=== PATIENT | female | born 1955 | race Caucasian/White ===

== ENCOUNTER → 2017-01-18 | Outpatient (REF) | payer BC ==
[~2017-01-18] MED LIST: ALEV220C2 PO; BIOT5TAB3 PO; CLAR1CHW PO; LEXA1TAB PO; METF1000 PO; MYLI40DR PO; NEUR600T PO; ROXI1TAB2 PO; TYLE325T5 PO; VITA100037 PO
[2017-01-18 17:32] LABS: ALBUMIN 3.5 GM/DL (3.2-5.2); ALBUMIN/GLOBULIN RATIO 1.06 (1.00-1.93); ALKALINE PHOSPHATASE 75 U/L (45-117); ALT/SGPT 28 U/L (12-78); ANION GAP 8 MEQ/L (8-16); AST/SGOT 24 U/L (15-37); BILIRUBIN,TOTAL 0.3 MG/DL (0.2-1.0); BLOOD UREA NITROGEN 25 MG/DL (7-18); CALCIUM LEVEL 8.9 MG/DL (8.8-10.2); CARBON DIOXIDE LEVEL 26 MEQ/L (21-32); CHLORIDE LEVEL 107 MEQ/L (98-107); CHOLESTEROL LEVEL 170 MG/DL (<200); CREATININE FOR GFR 0.87 MG/DL (0.55-1.02); GLOMERULAR FILTRATION RATE > 60.0 (>45); GLUCOSE, FASTING 113 MG/DL (80-110); SODIUM LEVEL 141 MEQ/L (136-145); TOTAL PROTEIN 6.8 GM/DL (6.4-8.2); TRIGLYCERIDES LEVEL 125 MG/DL (<150)
== END ==
LOC: M SFHCCAPE 07:42
PROVIDERS: ATTEND Nurse Practitioner
DX: E11.9 Type 2 diabetes mellitus without complications (principal)

== ENCOUNTER → 2017-02-27 | Outpatient (CLI) | payer BC ==
[~2017-02-27] MED LIST changes: +CLAR5TAB7 PO; +GLUC1CAP10 PO; +NATU400T PO; +OMEG12002 PO; +VITA10006 PO
[2017-02-27 12:00] LABS: INR 0.96
[2017-02-27 12:09] LABS: MEAN CORPUSCULAR HEMOGLOBIN 27.7 pg (27.0-33.0); MEAN CORPUSCULAR HGB CONC 32.7 g/dl (32.0-36.5); MEAN CORPUSCULAR VOLUME 84.7 fl (80.0-96.0); RED CELL DISTRIBUTION WIDTH 14.2 % (11.5-14.5); WHITE BLOOD COUNT 5.9 K/mm3 (4.0-10.0)
--- NOTE | 2017-02-27 12:12 | REP ---
Clinical: Diabetes. Comparison: None. Technique: PA and lateral. Findings: The mediastinum and cardiac silhouette are normal. The lung flores are clear and without acute consolidation, effusion, or pneumothorax. The skeletal structures are intact and normal. S/P left arthroplasty. Impression: 1. No acute cardiopulmonary process. Signed by Alphonso Vargas MD 02/27/2017 12:04 P
[2017-02-27 12:19] LABS: ALBUMIN 3.7 GM/DL (3.2-5.2); ALBUMIN/GLOBULIN RATIO 1.09 (1.00-1.93); ALKALINE PHOSPHATASE 85 U/L (45-117); ALT/SGPT 29 U/L (12-78); ANION GAP 8 MEQ/L (8-16); AST/SGOT 23 U/L (15-37); BILIRUBIN,TOTAL 0.5 MG/DL (0.2-1.0); BLOOD UREA NITROGEN 19 MG/DL (7-18); CALCIUM LEVEL 9.7 MG/DL (8.8-10.2); CARBON DIOXIDE LEVEL 28 MEQ/L (21-32); CHLORIDE LEVEL 103 MEQ/L (98-107); CREATININE FOR GFR 0.78 MG/DL (0.55-1.02); GLOMERULAR FILTRATION RATE > 60.0 (>45); GLUCOSE, FASTING 104 MG/DL (80-110); POTASSIUM SERUM 4.4 MEQ/L (3.5-5.1); SODIUM LEVEL 139 MEQ/L (136-145); TOTAL PROTEIN 7.1 GM/DL (6.4-8.2)
--- NOTE | 2017-03-01 14:19 | ECGEPIP ---
Stationary ECG Study [facility] Test Date: 2017-02-27 Pat Name: CHEYENNE SALAS Department: Room: - Gender: F Automation Engineering Technician: JUSTEN : 1955 Requested By: Abbe Arana Order Number: [id number] Reading MD: Serge Curry Measurements Intervals [place] Rate: 77 P: 11 OH: 157 QRS: -7 QRSD: 97 T: 20 QT: 361 QTc: 409 Interpretive Statements SINUS RHYTHM Normal Electronically Signed On 03-01-2017 14:18:50 EDT by Serge Curry
== END ==
LOC: M ADMPAT 10:13
PROVIDERS: ATTEND Orthopaedic Surgery
DX: Z01.818 Encounter for other preprocedural examination (principal); M17.12 Unilateral primary osteoarthritis, left knee

== ENCOUNTER 2017-03-13 08:10 | Inpatient (IN) | payer BC ==
[2017-02-27 10:46] VITALS: BP 136/80
--- NOTE | 2017-03-07 15:02 | HPE ---
DATE OF ADMISSION: 03/13/2017 HISTORY OF PRESENT ILLNESS: This is a pleasant female with continuing symptomatic left knee osteoarthritis. She has consented for left total knee arthroplasty per Dr. Sumit Arrington. Medical optimization was performed by Lashae Vaca today, I am awaiting optimization results. X-rays are consistent with advanced osteoarthritis. ALLERGIES: None known to drugs. CURRENT MEDICATIONS: List includes: - metformin HCl 1000 mg - Claritin-D 12 Hour 5-120 mg - vitamin E 400 units - vitamin C 1,000 mg - Biotin 1000 mcg - glucosamine chondroitin 1500 complex - omega 3 1200 mg MEDICAL PROBLEM LIST: Includes: 1. Symptomatic left knee osteoarthritis. 2. Diabetes mellitus. 3. Seasonal allergies. 4. Obesity. 5. Cancer history. SURGICAL HISTORY: Total hysterectomy, hernia repair, shoulder placement, cataract removal, LASIK. FAMILY HISTORY: Positive for hypertension, hypercholesteremia, heart disease, cancer, arthritis. SOCIAL HISTORY: She is a former smoker, quit. Rarely consumes ethanol. Denies illicit drugs. REVIEW OF SYSTEMS: Denies chest pain, dyspnea on exertion, fever, chills, malaise, upper respiratory or urinary tract symptoms. PHYSICAL EXAMINATION: Height 61 inches, weight 225. Temperature 98. She is a pleasant, obese female in no acute distress. She is alert and oriented times three. Mood and affect are appropriate. She is ambulating without overt antalgia assistance favoring. The lower extremities were inspected. Skin temperature, color, sensory and motor within normal limits. These are benign, noninfectious looking lower extremities. Left knee positive medial joint line tenderness with crepitance through flexion and extension, range of motion is 0 past 90. She is stable about the collateral ligaments, patellar, and quadriceps tendons without palpable defects. Patellar femoral joint (PFJ) congruent, static and dynamic. Left hip range of motion is not irritable or limited through internal or external range of motion. Normocephalic. Neck supple. Negative jugular venous distention (JVD) or bruits. Chest rises symmetrically, regular rate and rhythm. Lungs clear to auscultation. Bowels soft, nontender, sounds times four. LABORATORY DATA: Labs were unremarkable other than trace ketone, +1 leukocyte esterase and microscopic AUT WBC 5. BUN 19, sedimentation rate 33. Chest x-ray: No cardiopulmonary process, read by Dr. Vargas on 02/27/2017. EKG normal sinus rhythm as read by Dr. Serge Curry. IMPRESSION: 1. Symptomatic left knee osteoarthritis. 2. The patient consented for left total knee arthroplasty per Dr. Sumit Arrington. 3. Medical optimization performed today by Lashae Vcaa, we are awaiting optimization results. 4. On-call operating room (OR) 2 grams IV Kefzol in operating room (OR). 5. Sequential compression device (SCD) and thromboembolism deterrents (TEDs) in operating room (OR). MTDD
[~2017-03-13] VITALS: Ht 157.5 cm; Wt 104.1 kg
[2017-03-13] VITALS (8 sets, daily range): BP systolic 125–162; BP diastolic 60–81; O2SAT 98
[2017-03-13] MEDS ORDERED: LR 1,000 ML IV SCH ×2 (08:30→13:45)
[2017-03-13] MEDS ORDERED: ACETAMINOPHEN 500 MG TAB PO ONE (08:30)
[2017-03-13] MEDS ORDERED: LIDOCAINE 2% INJ 100 MG/5 ML SDV (FOR ANES.) As Ordered ONE (09:29)
[2017-03-13] MEDS ORDERED: PROPOFOL 500 MG/50 ML VIAL As Ordered ONE (09:29)
[2017-03-13] MEDS ORDERED: ONDANSETRON 4MG/2ML VIAL (J2405) As Ordered ONE (09:29)
[2017-03-13] MEDS ORDERED: MIDAZOLAM INJ 2 MG/2 ML VIAL (J2250) As Ordered ONE ×2 (09:29→09:30)
[2017-03-13] MEDS ORDERED: fentaNYL 100 MCG/2 ML INJECTION (J3010) As Ordered ONE ×3 (09:29→09:55)
[2017-03-13] MEDS ORDERED: BUPIVACAINE HCL 0.25% 30 ML VIAL As Ordered ONE (09:45)
[2017-03-13] MEDS ORDERED: BUPIVACAINE HCL 0.25% 10 ML VIAL As Ordered ONE (09:45)
[2017-03-13] MEDS ORDERED: EPINEPHrine INJ 1 MG/ML 1ML AMP As Ordered ONE (09:46)
[2017-03-13] MEDS: MIDAZOLAM INJ 2 MG/2 ML VIAL (J2250) IV PRN ×2 (09:46→09:50)
[2017-03-13] MEDS ORDERED: TRANEXAMIC ACID 100 MG/ML 10ML VIAL As Ordered ONE (09:46)
[2017-03-13] MEDS ORDERED: ceFAZolin 1GM INJ (J0690) As Ordered ONE (09:47)
[2017-03-13] MEDS ORDERED: fentaNYL 100 MCG/2 ML INJECTION (J3010) IV PRN ×2 (10:30→13:45)
[2017-03-13] MEDS ORDERED: BUPIVACAINE HCL 0.5% 10 ML VIAL As Ordered ONE (10:38)
[2017-03-13] MEDS ORDERED: ePHEDrine SULFATE 25 MG/5 ML(5MG/ML) SYRINGE As Ordered ONE (12:19)
[2017-03-13] MEDS ORDERED: PHENYLephrine HCL 500 MCG/5 ML (100MCG/ML) SYRINGE (J2370) As Ordered ONE (12:19)
[2017-03-13] MEDS ORDERED: PROPOFOL 200 MG/20 ML VIAL As Ordered ONE ×2 (12:21→13:00)
[2017-03-13] MEDS ORDERED: MORPHINE 1MG/ML IN 0.9% NACL 100ML IV BAG As Ordered ONE (13:07)
[2017-03-13] MEDS ORDERED: NALBUPHINE HCL 10 MG/ML AMP (J2300) IV PRN (13:45)
[2017-03-13] MEDS ORDERED: ONDANSETRON 4MG/2ML VIAL (J2405) IV PRN ×2 (13:45)
[2017-03-13] MEDS ORDERED: PERCOCET 5MG/325MG TAB PO PRN ×2 (13:45→17:45)
[2017-03-13] MEDS ORDERED: METOCLOPRAMIDE INJ 10MG/2ML VIAL (J2765) IV PRN (13:45)
[2017-03-13] MEDS ORDERED: NALOXONE INJ 0.4 MG/1 ML VIAL (J2310) IV PRN (13:45)
[2017-03-13] MEDS ORDERED: MORPHINE 1MG/ML IN 0.9% NACL 100ML IV BAG IV PRN (13:45)
[2017-03-13] MEDS ORDERED: PATIENT IS CURRENTLY ON AN ON-Q PAIN BUSTER PAIN RELIEF SYSTEM XX SCH (13:45)
[2017-03-13] MEDS ORDERED: EPIDURAL/PCA KEYS XX PRN (13:45)
[2017-03-13] MEDS ORDERED: diphenhydrAMINE INJ 50MG/ML VIAL (J1200) IV PRN (13:45)
[2017-03-13] MEDS ORDERED: FLEET ENEMA PR PRN (14:00)
[2017-03-13] MEDS ORDERED: ACETAMINOPHEN TAB 650MG DOSE (2X325MG) PO PRN (14:00)
--- NOTE | 2017-03-13 14:40 | RO ---
DATE OF PROCEDURE: 03/13/2017 PREPROCEDURE DIAGNOSIS: Left knee degenerative arthritis. POSTPROCEDURE DIAGNOSIS: Left knee degenerative arthritis. PROCEDURE: Left total knee arthroplasty using a cruciate sacrificing size #2.5 femoral component with a size #2 tibial tray and a 12.5 posterior stabilized polyethylene rotating platform insert with a 32 mm polyethylene button. All components were cemented. Prosthesis was made by [employer]. It was a PFC knee. SURGEON: Dr. Abbe Arrington UM RN: ANESTHESIA: Spinal with left femoral nerve block. COMPLICATIONS: None. ESTIMATED BLOOD LOSS: Less than 50 mL. SPECIMENS: Joint surface. DESCRIPTION OF PROCEDURE: Antibiotics were given intravenously preoperatively and then successful left femoral nerve block and then a spinal anesthetic was induced, tourniquet was placed on the left upper thigh, not inflated, then the left lower extremity was prepped and draped in the usual sterile fashion. The leg was elevated. After appropriate time out, the tourniquet was inflated 275 mmHg for 72 minutes. A longitudinal incision was made for a medial parapatellar approach to the knee. Bovie cautery was used to coagulate the crossing vessels. Medial parapatellar arthrotomy was performed. Subperiosteal dissection over the proximal medial and proximal lateral portion of the tibial plateau was performed and the patella was everted and the knee was flexed. The anterior cruciate ligament (ACL) was debrided. Drill was placed down the center of the femoral canal, followed by the intramedullary hernan set at 10 mm resection level at 5 degree valgus cut for a left knee. The block was pinned into position and then the distal femoral cut was performed. AP sizing jig measured closest to a size #3, but there was a bit of overhang, but it still measured at 3, so I went with that initially. 3-degree external rotation block was pinned, followed by the 4-in-1 block, and then the anterior and posterior chamfer cuts performed. We then exposed the proximal tibia. Used the extramedullary hernan to estimate being parallel to the mechanical access of the tibia. Then we referenced off the medial tibial condyle at 4 mm resection levels and then pinned the block in position. Extramedullary hernan was used for secondary check and it appeared that they were parallel to the mechanical axis. At this point, the proximal tibial osteotomy has been performed and then we placed a laminar director business integration laterally and performed completion medial meniscectomy and debrided large posterior medial osteophytes, then placed the lamina director business integration medially and performed a completion lateral meniscectomy and debridement of posterolateral osteophytes. The spacer blocks were then trialed and the 10 actually fit well. Thus, I removed the pins and she was relatively symmetric in flexion and extension, to varus and valgus stress testing as well. Thus, at this point, I then exposed the proximal tibia and sized for actually a size #2 tibial tray, which was then pinned into position, followed by the reamer and the broach and the trial polyethylene was applied and the femoral component was applied. There was quite a bit of overhang with a size #3. When we were done assessing the stability, it is clear that most of the posterior cruciate ligament (PCL), if not all the PCL was actually resected with the tibial cut, and there was not a lot of posterior capsule remaining, and thus I felt that the #3 femoral component seemed a bit large and we templated preoperatively between a 2 and 2.5, and also that there was a possibility of having some posterior instability, I elected to proceed with a posterior cruciate sacrificing femoral componenet. The trials were removed and the previous pin holes for the #3 femoral cutting block, 4-in-1 block were found, identified using the [id number] device, and then I switched out to the #2.5 4-in-1 block and then I touched up the posterior cut and the posterior chamfers, and there was no additional bone from the anterior chamfers or the anterior cut. Then I applied the box jig for the femoral notch cut, pinned it in position and performed the notch osteotomy and the #2.5 femoral component fit very nicely. Then I trialed with a 12.5 poly and this actually had excellent extension and good flexion, good stability to posterior stress, and also very stable to varus and valgus stress testing. Thus, I felt that this would be the appropriate sized components to use. I brought the knee into extension and performed patellar osteotomy, sized for a 32 button, lug holes were drilled, trial polyethylene was placed and the patellofemoral tracking was anatomic. Thus, at this point, I removed all the trial components. Mr. George Lyle mixed the cement on the back table as I copiously pulsatile lavage irrigated out the knee joint, preparing for bone cementing. I did bone graft the two small drills holes that we placed initially for the sacrificing femoral component. Once all the bony surfaces were thoroughly dried and irrigated, we cemented the tibial tray, removed excess cement, cemented the femoral component, removed excess cement, placed the polyethylene and brought it into extension then cemented the patellar button, removed excess cement and held it with a clamp until the cement had hardened. We copiously pulsatile lavage irrigated out the knee joint as we were waiting for the cement to harden with the knee in full extension. Mr. George Lyle was also critical to the success of the procedure by helping to close the wound, helping to prepare the patient, helping to manipulate the knee in flexion and extension and also help with appropriate soft tissue retraction so I could perform the operation smoothly and efficiently. Once the cement had hardened, the tranexamic acid had been applied, and I closed the apex of the wound with two #1 PDS sutures, medial parapatellar area was closed with a single #1 PDS suture, and a running double armed #1 Stratafix was used to close the capsule, then the tourniquet was released. We irrigated between layers, placed the PainBuster catheter. Then closed the deep subdermal tissues with interrupted #2-0 PDS suture. The skin was closed with cooper, covered by Adaptic dry sterile bulky dressing. She was then transferred to the recovery room in stable condition. There were no intraoperative complications.
[2017-03-13] MEDS: LR 1,000 ML IV SCH (16:30)
[2017-03-13] MEDS ORDERED: WARFARIN SOD 5 MG TAB PO SCH (17:00)
[2017-03-13] MEDS ORDERED: ONDANSETRON 4 MG TAB (S0181) PO PRN (17:45)
[2017-03-13] MEDS ORDERED: DEXTROSE 50% 50 ML SYRINGE IV PRN (18:30)
[2017-03-13] MEDS ORDERED: GLUCOSE 4 GM CHEW TABLET PO PRN (18:30)
[2017-03-13] MEDS ORDERED: GLUCAGON FOR INJ 1 MG VIAL (J1610) SC PRN (18:30)
[2017-03-13 19:01] LABS: MEAN CORPUSCULAR HEMOGLOBIN 27.5 pg (27.0-33.0); RED CELL DISTRIBUTION WIDTH 14.3 % (11.5-14.5)
[2017-03-13 19:24] LABS: ANION GAP 6 MEQ/L (8-16); BLOOD UREA NITROGEN 11 MG/DL (7-18); CALCIUM LEVEL 8.4 MG/DL (8.8-10.2); CARBON DIOXIDE LEVEL 28 MEQ/L (21-32); CHLORIDE LEVEL 108 MEQ/L (98-107); GLOMERULAR FILTRATION RATE > 60.0 (>45); GLUCOSE, FASTING 131 MG/DL (80-110); POTASSIUM SERUM 3.8 MEQ/L (3.5-5.1); SODIUM LEVEL 142 MEQ/L (136-145)
[2017-03-13] MEDS: HumaLOG INSULIN (NovoLOG) PER UNIT SC SCH (21:00)
[2017-03-14] MEDS: PERCOCET 5MG/325MG TAB PO PRN ×4 (01:10→22:26)
[2017-03-14] MEDS: LR 1,000 ML IV SCH (02:55)
[2017-03-14 03:30] VITALS: BP 154/87
[2017-03-14 06:00] VITALS: BP 137/79
[2017-03-14 07:16] LABS: EOS % 0.4 % (0.0-3.0); LARGE UNSTAINED CELL # 0.1 K/mm3 (0.0-0.4); LARGE UNSTAINED CELL % 0.7 % (0.0-4.0); LYMPH # 0.5 K/mm3 (1.5-4.5); LYMPH % 6.3 % (24.0-44.0); MEAN CORPUSCULAR HGB CONC 31.8 g/dl (32.0-36.5); MONO # 0.4 K/mm3 (0.0-0.8); MONO % 6.3 % (0.0-5.0); NEUTROPHILS # 6.1 K/mm3 (1.8-7.7); NEUTROPHILS % 86.4 % (36.0-66.0); PLATELET COUNT, AUTOMATED 173 k/mm3 (150-450); RED CELL DISTRIBUTION WIDTH 14.4 % (11.5-14.5)
[2017-03-14 07:20] LABS: INR 1.2
[2017-03-14 07:31] LABS: ALBUMIN 2.9 GM/DL (3.2-5.2); ALBUMIN/GLOBULIN RATIO 0.83 (1.00-1.93); ALKALINE PHOSPHATASE 73 U/L (45-117); ALT/SGPT 25 U/L (12-78); ANION GAP 4 MEQ/L (8-16); AST/SGOT 22 U/L (15-37); BILIRUBIN,TOTAL 0.5 MG/DL (0.2-1.0); BLOOD UREA NITROGEN 6 MG/DL (7-18); CALCIUM LEVEL 8.5 MG/DL (8.8-10.2); CARBON DIOXIDE LEVEL 30 MEQ/L (21-32); CHLORIDE LEVEL 104 MEQ/L (98-107); CREATININE FOR GFR 0.81 MG/DL (0.55-1.02); GLOMERULAR FILTRATION RATE > 60.0 (>45); GLUCOSE, FASTING 155 MG/DL (80-110); MAGNESIUM LEVEL 1.7 MG/DL (1.8-2.4); POTASSIUM SERUM 4.2 MEQ/L (3.5-5.1); SODIUM LEVEL 138 MEQ/L (136-145); TOTAL PROTEIN 6.4 GM/DL (6.4-8.2)
--- NOTE | 2017-03-14 08:10 | CR ---
DATE OF CONSULTATION: 03/13/2017 ORTHOPEDIC SURGEON: Dr. Arrington PRIMARY CARE PROVIDER: Tona Vaca PA-C REASON FOR CONSULT: Medical management. CODE STATUS: FULL CODE. HISTORY OF PRESENT ILLNESS: Mrs. Esqueda is a 62-year-old female with multiple past medical history, who had left total knee arthroplasty which was done by Dr. Arrington this afternoon. Patient has been having bilateral knee pain, left more than right due to osteoarthritis for a long time. this is an elective surgery was scheduled before to have this surgery; however, patient was postponing due to different reasons, including traveling. Medical optimization assessment was performed by her primary care provider (PCP). X-ray was consistent with advanced osteoarthritis. Patient's surgical procedure report was successful. ALLERGIES: No known drug allergies. HOME MEDICATIONS: - Aleve 220 mg by mouth every morning - vitamin E 400 units by mouth daily - vitamin C 1000 mg by mouth daily - Biotin 5 mg by mouth daily - Claritin D 5/120 mg one tablet by mouth daily - glucosamine chondroitin one capsule twice a day - metformin 1000 mg by mouth twice a day - Shelburn 3 one capsule daily PAST MEDICAL HISTORY: 1. Hypertension. 2. Depression. 3. Arthritis. 4. History of endometrial cancer. 5. Umbilical hernia due to total hysterectomy 2008. 6. Diabetes mellitus type 2. 7. Obstructive sleep apnea, 8. Hyperlipidemia. PAST SURGICAL HISTORY: 1. Left shoulder replacement 05/2013. 2. Total hysterectomy. 3. Endometrial cancer 2008. 4. Umbilical hernia repair 2009. 5. Incisional hernia repair 08/2015. 6. Right-side cataract 04/2016. FAMILY HISTORY: Patient's father at age 79 due to chronic obstructive pulmonary disease (COPD), lung cancer, prostate cancer. Mother still alive; however, has arthritis and hypertension. Patient has one brother who has a kidney condition; however, he is stable. Also, he has a history of skin cancer. Patient has no children. SOCIAL HISTORY: Patient lives alone. Patient denies having pets. Patient smoked from 1987 to 1994, about one-half pack a day. Patient occasionally drinks alcoholic beverages. Patient denies illicit drug use. Patient has traveled to [place] and [place]. REVIEW OF SYSTEMS: GENERAL: Patient denies fevers, chills, night sweats, weight loss, weight gain. HEENT: Patient denies acute vision or hearing changes. Patient denies problems with chewing food or sinusitis. NECK: Patient has no decreased range of motion of her neck. HEART: Patient denies palpitations, racing or skipping heartbeat or chest pain. LUNGS: Patient denies shortness of breath or coughing. ABDOMEN: Patient denies abdominal pain, nausea or vomiting, diarrhea, constipation, melena, hematochezia or hemoptysis. NEUROLOGIC: Patient denies history of transient ischemic attack (TIA), cerebrovascular accident (CVA), or seizure-type activity. EXTREMITIES: Patient expressed that she has left lower extremity pain, which is proportional to the surgery and patient expressed that her left lower extremity range of motion has decreased compared to the right secondary to surgical procedure. PHYSICAL EXAMINATION: VITAL SIGNS: Temperature 97.4, pulse 91, respiratory rate 15, blood pressure 136/61, pulse oximetry 97% on 2 liters nasal cannula. GENERAL APPEARANCE: Patient was lying in bed, in no acute distress. Patient was awake, alert and oriented to time, place and person. Patient was seen post left total knee arthroplasty. HEENT: Normocephalic, atraumatic. Pupils are equal and reactive to light. Oral mucosa is moist. LUNGS: Clear breath sounds bilaterally. Good air movement. HEART: Regular rate and rhythm. Normal S1, S2. ABDOMEN: Soft, obese, nontender to palpation. Positive bowel sounds in all quadrants. EXTREMITIES: Patient has mild lower extremity edema bilaterally. Left lower extremity has orthopedic surgical wound, dressing, which is intact. No bleeding or drainage was noted at the site of the surgery on the surgical dressing. Patient has normal sensation in both upper and lower extremities. Patient also has normal strength in both upper and lower extremities; however, patient has decreased strength on the left lower extremity compared to the right lower extremity due to surgery. Also, the range of motion of the left lower extremity is decreased compared to the right lower extremity due to surgical procedure. NEUROLOGIC: Cranial nerves II-XII intact. LABORATORY DATA: Laboratory data is pending at this time. IMAGING TECHNIQUE: No new imaging. ASSESSMENT AND PLAN: 1. Symptomatic left knee osteoarthritis. Patient is postoperative left total knee arthroplasty, which was done by Dr. Arrington. At this time, the patient is stable. Patient has started on warfarin and the PT/INR level is pending. Patient is also on Percocet at this time, which will be managed by orthopedics for pain management. Also, patient has been started on cephazolin. 2. Depression. At this time, patient is stable. She is on no medication. 3. Hypertension. Patient's blood pressure is stable at this time. Also, on IV lactate Ringer's, which was started by orthopedics group. 4. History of endometrial cancer. This is a chronic issue. At this time, patient is stable. 5. Umbilical hernia. Patient is stable. 6. Diabetes mellitus type 2. At home, patient was on metformin; however, I have stopped metformin. Patient is on sliding scale. Patient is also on consistent carbohydrate diet. 7. Deep venous thrombosis (DVT) prophylaxis. Patient is on warfarin. We will continue monitoring patient's PT, INR. My preceptor for this patient encounter was Dr. Cristiano Rubi. The preceptor was physically present in the building during the encounter and was fully available as needed. All aspects of the patient interview, examination, medical decision-making process, and medical care plan development were reviewed and approved by the preceptor. The preceptor is aware and concurs with the plan as stated in the body of this note and will attest to such by his/her co-signature. TRINH
[2017-03-14] MEDS: HumaLOG INSULIN (NovoLOG) PER UNIT SC SCH ×4 (08:19→20:41)
[2017-03-14] MEDS: MIRALAX *UNIT DOSE* 17GM PACKET PO SCH (08:19)
[2017-03-14] MEDS: MOM 30ML SUSPENSION UDC PO SCH (08:19)
[2017-03-14] MEDS: MORPHINE 15 MG SA TAB PO SCH ×2 (08:20→20:41)
[2017-03-14] MEDS: SENOKOT S TAB PO SCH ×2 (08:20→20:41)
--- NOTE | 2017-03-14 11:40 | REP ---
LEFT KNEE: Two views. HISTORY: Check placement. FINDINGS: Two views of the left knee demonstrate that the patient is status post left knee arthroplasty. Femoral, tibial, and patellar prosthetic components are well aligned. Anterior skin cooper and soft tissue swelling is seen. A pain control catheter system is visible laterally. Signed by Lowell Johnson MD 03/14/2017 01:38 P
--- NOTE | 2017-03-14 12:12 | IPNPDOC ---
Subjective Date Seen The patient was seen on 03/14/17. Subjective Chief Complaint/HPI The patient is a 62-year-old female admitted with a reason for visit of Arthritis Left Knee. Events since last encounter Was tired this morning, pain controlled. Tolerated some breakfast. Does not think that she needs to wear CPAP anymore because she has lost weight Constitutional: Denies: Chills, Fever Pulmonary: Denies: Dyspnea, Cough Cardiovascular: Denies: Chest Pain, Palpitations Gastrointestinal: Denies: Nausea, Vomiting, Abdominal Pain Objective Physical Examination General Exam: Positive: Alert, Cooperative, No Acute Distress Eye Exam: Negative: Sclera icteric ENT Exam: Positive: Mucous membr. moist/pink Chest Exam: Positive: Clear to auscultation, Negative: Rales, Rhonchi, Wheezing Heart Exam: Positive: Rate Normal, Regular Rhythm, Normal S1, Normal S2 Abdomen Exam: Positive: Normal bowel sounds, Soft, Negative: Tenderness Assessment /Plan Problems (1) Osteoarthritis Problem Text: Left total knee arthroplasty POD#[address] Jorge in person pain mgt, dvt proph, gi regimen, activity per ortho (2) Diabetes Status: Chronic Problem Specific Plan: Monitor Clinically Problem Text: sliding scale insulin consistent carb diet s/s insulin Well controlled for current setting (3) ROSS (obstructive sleep apnea) Problem Text: previous not currently on cpap as she has lost weight- needs a restudy as outpt as clinically (4) Hyperlipidemia Status: Chronic (5) HTN (hypertension) Status: Chronic Problem Text: List as a problem- no home meds, follow clinically (6) Depression Status: Chronic Plan/VTE VTE Prophylaxis Ordered?: Yes (by ortho) VS, I&O, 24H[facility] Vital Signs/I&O Vital Signs Date Time Temp Pulse Resp B/P (MAP) Pulse Ox O2 Delivery O2 Flow Rate FiO2 03/14/17 08:20 18 03/14/17 07:40 Room Air 03/14/17 06:00 98.2 80 137/79 (98) 99 2.0 I&O- Last 24 Hours up to 6 AM 03/14/17 06:00 Intake Total 2460 ml Output Total 2400 ml Balance 60 ml Laboratory Data 24H LABS Laboratory Tests 2 03/13/17 18:54: Anion Gap 6L, Glomerular Filtration Rate > 60.0, Blood Urea Nitrogen 11, Creatinine 0.80, Sodium Level 142, Potassium Level 3.8, Chloride Level 108H, Carbon Dioxide Level 28, Calcium Level 8.4L 03/13/17 19:46: Bedside Glucose (Misc Panel) 130H 03/14/17 06:45: Anion Gap 4L, Glomerular Filtration Rate > 60.0, Blood Urea Nitrogen 6L, Creatinine 0.81, Sodium Level 138, Potassium Level 4.2, Chloride Level 104, Carbon Dioxide Level 30, Calcium Level 8.5L, White Blood Count 7.0, Red Blood Count 4.03, Hemoglobin 10.9L, Hematocrit 34.3L, Mean Corpuscular Volume 85.0, Mean Corpuscular Hemoglobin 27.0, Mean Corpuscular Hemoglobin Concent 31.8L, Red Cell Distribution Width 14.4, Platelet Count 173, Neutrophils (%) (Auto) 86.4H, Lymphocytes (%) (Auto) 6.3L, Monocytes (%) (Auto) 6.3H, Eosinophils (%) ( Auto) 0.4, Basophils (%) (Auto) 0.0, Neutrophils # (Auto) 6.1, Lymphocytes # ( Auto) 0.5L, Monocytes # (Auto) 0.4, Eosinophils # (Auto) 0.0, Basophils # (Auto ) 0.0, Large Unclassified Cells % 0.7, Large Unclassified Cells # 0.1, Prothrombin Time 15.3H, Prothromb Time International Ratio 1.20, Aspartate Amino Transf (AST/SGOT) 22, Alanine Aminotransferase (ALT/SGPT) 25, Alkaline Phosphatase 73, Total Bilirubin 0.5, Total Protein 6.4, Albumin 2.9L, Magnesium Level 1.7L, Albumin/Globulin Ratio 0.83L CBC/BMP Laboratory Tests 03/13/17 18:54 Red Blood Count 3.80 L, Mean Corpuscular Volume 86.0, Mean Corpuscular Hemoglobin 27.5, Mean Corpuscular Hemoglobin Concent 32.0, Red Cell Distribution Width 14.3, Calcium Level 8.4 L 03/14/17 06:45 Red Blood Count 4.03, Mean Corpuscular Volume 85.0, Mean Corpuscular Hemoglobin 27.0, Mean Corpuscular Hemoglobin Concent 31.8 L, Red Cell Distribution Width 14.4, Calcium Level 8.5 L, Neutrophils (%) (Auto) 86.4 H, Lymphocytes (%) (Auto ) 6.3 L, Monocytes (%) (Auto) 6.3 H, Eosinophils (%) (Auto) 0.4, Basophils (%) ( Auto) 0.0, Neutrophils # (Auto) 6.1, Lymphocytes # (Auto) 0.5 L, Monocytes # ( Auto) 0.4, Eosinophils # (Auto) 0.0, Basophils # (Auto) 0.0, Aspartate Amino Transf (AST/SGOT) 22, Alanine Aminotransferase (ALT/SGPT) 25, Alkaline Phosphatase 73, Total Bilirubin 0.5, Total Protein 6.4, Albumin 2.9 L RITA EUBANKS MD Mar 14, 2017 12:12
[2017-03-14] MEDS ORDERED: WARFARIN SOD 5 MG TAB PO ONE (17:00)
[2017-03-14 22:00] VITALS: BP 146/88
[2017-03-15 06:00] VITALS: BP 160/78
[2017-03-15 07:38] LABS: BASO % 0.3 % (0.0-1.0); EOS # 0.1 K/mm3 (0.0-0.50); EOS % 1.4 % (0.0-3.0); LARGE UNSTAINED CELL # 0.1 K/mm3 (0.0-0.4); LARGE UNSTAINED CELL % 1.1 % (0.0-4.0); LYMPH # 0.6 K/mm3 (1.5-4.5); LYMPH % 6.5 % (24.0-44.0); MEAN CORPUSCULAR HEMOGLOBIN 26.8 pg (27.0-33.0); MEAN CORPUSCULAR HGB CONC 31.8 g/dl (32.0-36.5); MEAN CORPUSCULAR VOLUME 84.6 fl (80.0-96.0); MONO # 0.5 K/mm3 (0.0-0.8); MONO % 6.4 % (0.0-5.0); NEUTROPHILS # 6.2 K/mm3 (1.8-7.7); NEUTROPHILS % 84.3 % (36.0-66.0); PLATELET COUNT, AUTOMATED 172 k/mm3 (150-450); RED CELL DISTRIBUTION WIDTH 14.1 % (11.5-14.5); WHITE BLOOD COUNT 7.4 K/mm3 (4.0-10.0)
[2017-03-15 07:45] LABS: INR 1.6
[2017-03-15 07:53] LABS: ALBUMIN 2.8 GM/DL (3.2-5.2); ALBUMIN/GLOBULIN RATIO 0.76 (1.00-1.93); ALKALINE PHOSPHATASE 70 U/L (45-117); ALT/SGPT 20 U/L (12-78); ANION GAP 5 MEQ/L (8-16); AST/SGOT 17 U/L (15-37); BILIRUBIN,TOTAL 0.6 MG/DL (0.2-1.0); BLOOD UREA NITROGEN 7 MG/DL (7-18); CALCIUM LEVEL 8.7 MG/DL (8.8-10.2); CARBON DIOXIDE LEVEL 32 MEQ/L (21-32); CHLORIDE LEVEL 103 MEQ/L (98-107); CREATININE FOR GFR 0.82 MG/DL (0.55-1.02); GLOMERULAR FILTRATION RATE > 60.0 (>45); GLUCOSE, FASTING 132 MG/DL (80-110); MAGNESIUM LEVEL 2.2 MG/DL (1.8-2.4); POTASSIUM SERUM 3.9 MEQ/L (3.5-5.1); SODIUM LEVEL 140 MEQ/L (136-145); TOTAL PROTEIN 6.5 GM/DL (6.4-8.2)
[2017-03-15] MEDS: MORPHINE 15 MG SA TAB PO SCH ×2 (08:03→21:06)
[2017-03-15] MEDS: SENOKOT S TAB PO SCH ×2 (08:03→21:06)
[2017-03-15] MEDS: MOM 30ML SUSPENSION UDC PO SCH (08:03)
[2017-03-15] MEDS: MIRALAX *UNIT DOSE* 17GM PACKET PO SCH (08:03)
[2017-03-15] MEDS: HumaLOG INSULIN (NovoLOG) PER UNIT SC SCH ×4 (08:03→21:00)
[2017-03-15 08:14] VITALS: O2SAT 98
[2017-03-15] MEDS ORDERED: PERC5TAB6 PO (08:31)
[2017-03-15] MEDS ORDERED: MORP15TASA PO (08:31)
[2017-03-15] MEDS ORDERED: COUM2.5T11 PO (08:31)
--- NOTE | 2017-03-15 10:51 | IPNPDOC ---
Subjective Date Seen The patient was seen on 03/15/17. Subjective Chief Complaint/HPI The patient is a 62-year-old female admitted with a reason for visit of Arthritis Left Knee. Events since last encounter No BM as of yet, slept well last night, no chest pain, not short of breath, tolerating diet Constitutional: Denies: Chills, Fever Skin: Denies: Rash Pulmonary: Denies: Dyspnea, Cough Cardiovascular: Denies: Chest Pain, Palpitations Gastrointestinal: Denies: Nausea, Vomiting, Abdominal Pain Objective Physical Examination General Exam: Positive: Alert, Cooperative, No Acute Distress ENT Exam: Positive: Mucous membr. moist/pink Chest Exam: Positive: Clear to auscultation, Negative: Rales, Rhonchi, Wheezing Heart Exam: Positive: Rate Normal, Regular Rhythm, Normal S1, Normal S2 Abdomen Exam: Positive: Normal bowel sounds, Soft, Negative: Tenderness Assessment /Plan Problems (1) Osteoarthritis Problem Text: Left total knee arthroplasty POD#2 I discussed with Zakia Varner in person pain mgt, dvt proph, gi regimen, activity per ortho No BM as of the time of my evaluation 03/15/17 (2) Diabetes Status: Chronic Problem Specific Plan: Monitor Clinically Problem Text: sliding scale insulin consistent carb diet s/s insulin Well controlled for current setting as of 03/15/17 (3) ROSS (obstructive sleep apnea) Problem Text: previous not currently on cpap as she has lost weight- needs a restudy as outpt as clinically (4) Hyperlipidemia Status: Chronic (5) HTN (hypertension) Status: Chronic Problem Text: List as a problem- no home meds, follow clinically BP elevated, may benefit from treatment currently Jessee inhibitor would be a good outpt choice, but in post op setting will start a low dose norvasc (6) Depression Status: Chronic Plan/VTE VTE Prophylaxis Ordered?: Yes (by ortho) VS, I&O, 24H, Fishbone Vital Signs/I&O Vital Signs Date Time Temp Pulse Resp B/P (MAP) Pulse Ox O2 Delivery O2 Flow Rate FiO2 03/15/17 08:14 98 Nasal Cannula 2.0 03/15/17 08:03 22 03/15/17 06:00 98.4 93 160/78 (105) I&O- Last 24 Hours up to 6 AM 03/15/17 05:59 Intake Total 1540 ml Output Total 2475 ml Balance -935 ml Laboratory Data 24H LABS Laboratory Tests 2 03/14/17 12:12: Bedside Glucose (Misc Panel) 122H 03/14/17 16:51: Bedside Glucose (Misc Panel) 152H 03/14/17 20:01: Bedside Glucose (Misc Panel) 121H 03/15/17 06:46: White Blood Count 7.4, Red Blood Count 3.93L, Hemoglobin 10.6L, Hematocrit 33.2L , Mean Corpuscular Volume 84.6, Mean Corpuscular Hemoglobin 26.8L, Mean Corpuscular Hemoglobin Concent 31.8L, Red Cell Distribution Width 14.1, Platelet Count 172, Neutrophils (%) (Auto) 84.3H, Lymphocytes (%) (Auto) 6.5L, Monocytes (%) (Auto) 6.4H, Eosinophils (%) (Auto) 1.4, Basophils (%) (Auto) 0.3 , Neutrophils # (Auto) 6.2, Lymphocytes # (Auto) 0.6L, Monocytes # (Auto) 0.5, Eosinophils # (Auto) 0.1, Basophils # (Auto) 0.0, Large Unclassified Cells % 1.1 , Large Unclassified Cells # 0.1, Prothrombin Time 19.1H, Prothromb Time International Ratio 1.60, Anion Gap 5L, Glomerular Filtration Rate > 60.0, Blood Urea Nitrogen 7, Creatinine 0.82, Sodium Level 140, Potassium Level 3.9, Chloride Level 103, Carbon Dioxide Level 32, Calcium Level 8.7L, Aspartate Amino Transf (AST/SGOT) 17, Alanine Aminotransferase (ALT/SGPT) 20, Alkaline Phosphatase 70, Total Bilirubin 0.6, Total Protein 6.5, Albumin 2.8L, Magnesium Level 2.2, Albumin/Globulin Ratio 0.76L CBC/BMP Laboratory Tests 03/15/17 06:46 Red Blood Count 3.93 L, Mean Corpuscular Volume 84.6, Mean Corpuscular Hemoglobin 26.8 L, Mean Corpuscular Hemoglobin Concent 31.8 L, Red Cell Distribution Width 14.1, Neutrophils (%) (Auto) 84.3 H, Lymphocytes (%) (Auto) 6.5 L, Monocytes (%) (Auto) 6.4 H, Eosinophils (%) (Auto) 1.4, Basophils (%) ( Auto) 0.3, Neutrophils # (Auto) 6.2, Lymphocytes # (Auto) 0.6 L, Monocytes # ( Auto) 0.5, Eosinophils # (Auto) 0.1, Basophils # (Auto) 0.0, Calcium Level 8.7 L , Aspartate Amino Transf (AST/SGOT) 17, Alanine Aminotransferase (ALT/SGPT) 20, Alkaline Phosphatase 70, Total Bilirubin 0.6, Total Protein 6.5, Albumin 2.8 L RITA EUBANKS MD Mar 15, 2017 10:51
[2017-03-15] MEDS: amLODIPine 5 MG TAB PO SCH (12:15)
[2017-03-15] MEDS: PERCOCET 5MG/325MG TAB PO PRN ×2 (12:16→17:28)
[2017-03-15] MEDS ORDERED: WARFARIN SOD 5 MG TAB PO ONE (17:00)
[2017-03-15 22:00] VITALS: BP 157/78
[2017-03-16 06:00] VITALS: BP 150/75
[2017-03-16 07:30] LABS: BASO % 0.4 % (0.0-1.0); EOS # 0.2 K/mm3 (0.0-0.50); EOS % 2.6 % (0.0-3.0); LARGE UNSTAINED CELL # 0.1 K/mm3 (0.0-0.4); LARGE UNSTAINED CELL % 2.1 % (0.0-4.0); LYMPH # 0.7 K/mm3 (1.5-4.5); LYMPH % 9.2 % (24.0-44.0); MEAN CORPUSCULAR HEMOGLOBIN 27.6 pg (27.0-33.0); MEAN CORPUSCULAR HGB CONC 32.3 g/dl (32.0-36.5); MEAN CORPUSCULAR VOLUME 85.3 fl (80.0-96.0); MONO # 0.4 K/mm3 (0.0-0.8); MONO % 6.2 % (0.0-5.0); NEUTROPHILS # 4.8 K/mm3 (1.8-7.7); NEUTROPHILS % 79.5 % (36.0-66.0); PLATELET COUNT, AUTOMATED 194 k/mm3 (150-450); RED CELL DISTRIBUTION WIDTH 14.1 % (11.5-14.5); WHITE BLOOD COUNT 6.1 K/mm3 (4.0-10.0)
[2017-03-16 07:40] LABS: ALBUMIN 2.7 GM/DL (3.2-5.2); ALBUMIN/GLOBULIN RATIO 0.68 (1.00-1.93); ALKALINE PHOSPHATASE 67 U/L (45-117); ALT/SGPT 21 U/L (12-78); ANION GAP 7 MEQ/L (8-16); AST/SGOT 14 U/L (15-37); BILIRUBIN,TOTAL 0.6 MG/DL (0.2-1.0); BLOOD UREA NITROGEN 10 MG/DL (7-18); CALCIUM LEVEL 8.6 MG/DL (8.8-10.2); CARBON DIOXIDE LEVEL 30 MEQ/L (21-32); CHLORIDE LEVEL 102 MEQ/L (98-107); CREATININE FOR GFR 0.76 MG/DL (0.55-1.02); GLOMERULAR FILTRATION RATE > 60.0 (>45); GLUCOSE, FASTING 142 MG/DL (80-110); MAGNESIUM LEVEL 2.2 MG/DL (1.8-2.4); POTASSIUM SERUM 3.7 MEQ/L (3.5-5.1); SODIUM LEVEL 139 MEQ/L (136-145); TOTAL PROTEIN 6.7 GM/DL (6.4-8.2)
[2017-03-16] MEDS ORDERED: MAGNESIUM CITRATE 300 ML BTL PO ONE (08:00)
[2017-03-16] MEDS: HumaLOG INSULIN (NovoLOG) PER UNIT SC SCH ×2 (08:07→13:17)
[2017-03-16 08:08] VITALS: BP 150/75
[2017-03-16] MEDS: MOM 30ML SUSPENSION UDC PO SCH (08:08)
[2017-03-16] MEDS: MIRALAX *UNIT DOSE* 17GM PACKET PO SCH (08:08)
[2017-03-16] MEDS: amLODIPine 5 MG TAB PO SCH (08:08)
[2017-03-16] MEDS: SENOKOT S TAB PO SCH (08:08)
[2017-03-16] MEDS: MORPHINE 15 MG SA TAB PO SCH (08:08)
[2017-03-16 08:16] LABS: INR 1.77
[2017-03-16] MEDS: PERCOCET 5MG/325MG TAB PO PRN ×2 (09:19→13:17)
--- NOTE | 2017-03-16 13:25 | IPNPDOC ---
Subjective Date Seen The patient was seen on 03/16/17. Subjective Chief Complaint/HPI The patient is a 62-year-old female admitted with a reason for visit of Arthritis Left Knee. Events since last encounter Patient is feeling better, looking forward to going home, tolerating diet, no bm , passing flatus, considering recurrent sleep study- which we discussed the importance of Constitutional: Denies: Chills, Fever Pulmonary: Denies: Dyspnea, Cough Cardiovascular: Denies: Chest Pain, Palpitations Gastrointestinal: Denies: Nausea, Vomiting, Abdominal Pain Objective Physical Examination General Exam: Positive: Alert, Cooperative, No Acute Distress Eye Exam: Negative: Sclera icteric Chest Exam: Positive: Clear to auscultation, Negative: Rales, Rhonchi, Wheezing Heart Exam: Positive: Rate Normal, Regular Rhythm, Normal S1, Normal S2 Abdomen Exam: Positive: Normal bowel sounds, Soft, Negative: Tenderness Assessment /Plan Problems (1) Osteoarthritis Problem Text: Left total knee arthroplasty POD#3 I discussed with Zakia Varner in person today pain mgt, dvt proph, gi regimen, activity per ortho No BM as of the time of my evaluation 03/16/17 (2) Diabetes Status: Chronic Problem Specific Plan: Monitor Clinically Problem Text: sliding scale insulin consistent carb diet s/s insulin Well controlled for current setting as of 03/15/17 switch back to home meds for discharge (3) ROSS (obstructive sleep apnea) Problem Text: previous not currently on cpap as she has lost weight- needs a restudy as outpt as clinically (4) Hyperlipidemia Status: Chronic (5) HTN (hypertension) Status: Chronic Problem Text: List as a problem- no home meds, follow clinically BP elevated, may benefit from treatment currently Jessee inhibitor would be a good outpt choice, but in post op setting will start a low dose norvasc Needs further outpt monitoring- with improving pain management/recovery bp will normalize (6) Depression Status: Chronic Plan/VTE VTE Prophylaxis Ordered?: Yes (by ortho) VS, I&O, 24H, Fishbone Vital Signs/I&O Vital Signs Date Time Temp Pulse Resp B/P (MAP) Pulse Ox O2 Delivery O2 Flow Rate FiO2 03/16/17 13:17 20 03/16/17 11:00 95 Room Air 03/16/17 08:08 91 150/75 03/16/17 06:00 96.3 2.0 I&O- Last 24 Hours up to 6 AM 03/16/17 05:59 Intake Total 1880 ml Output Total 800 ml Balance 1080 ml Laboratory Data 24H LABS Laboratory Tests 2 03/15/17 16:38: Bedside Glucose (Misc Panel) 166H 03/15/17 20:31: Bedside Glucose (Misc Panel) 160H 03/16/17 07:15: White Blood Count 6.1, Red Blood Count 3.88L, Hemoglobin 10.7L, Hematocrit 33.1L , Mean Corpuscular Volume 85.3, Mean Corpuscular Hemoglobin 27.6, Mean Corpuscular Hemoglobin Concent 32.3, Red Cell Distribution Width 14.1, Platelet Count 194, Neutrophils (%) (Auto) 79.5H, Lymphocytes (%) (Auto) 9.2L, Monocytes (%) (Auto) 6.2H, Eosinophils (%) (Auto) 2.6, Basophils (%) (Auto) 0.4, Neutrophils # (Auto) 4.8, Lymphocytes # (Auto) 0.7L, Monocytes # (Auto) 0.4, Eosinophils # (Auto) 0.2, Basophils # (Auto) 0.0, Large Unclassified Cells % 2.1 , Large Unclassified Cells # 0.1, Prothrombin Time 20.7H, Prothromb Time International Ratio 1.77, Anion Gap 7L, Glomerular Filtration Rate > 60.0, Blood Urea Nitrogen 10, Creatinine 0.76, Sodium Level 139, Potassium Level 3.7, Chloride Level 102, Carbon Dioxide Level 30, Calcium Level 8.6L, Aspartate Amino Transf (AST/SGOT) 14L, Alanine Aminotransferase (ALT/SGPT) 21, Alkaline Phosphatase 67, Total Bilirubin 0.6, Total Protein 6.7, Albumin 2.7L, Magnesium Level 2.2, Albumin/Globulin Ratio 0.68L 03/16/17 12:03: Bedside Glucose (Misc Panel) 141H CBC/BMP Laboratory Tests 03/16/17 07:15 Red Blood Count 3.88 L, Mean Corpuscular Volume 85.3, Mean Corpuscular Hemoglobin 27.6, Mean Corpuscular Hemoglobin Concent 32.3, Red Cell Distribution Width 14.1, Neutrophils (%) (Auto) 79.5 H, Lymphocytes (%) (Auto) 9.2 L, Monocytes (%) (Auto) 6.2 H, Eosinophils (%) (Auto) 2.6, Basophils (%) ( Auto) 0.4, Neutrophils # (Auto) 4.8, Lymphocytes # (Auto) 0.7 L, Monocytes # ( Auto) 0.4, Eosinophils # (Auto) 0.2, Basophils # (Auto) 0.0, Calcium Level 8.6 L , Aspartate Amino Transf (AST/SGOT) 14 L, Alanine Aminotransferase (ALT/SGPT) 21 , Alkaline Phosphatase 67, Total Bilirubin 0.6, Total Protein 6.7, Albumin 2.7 L RITA EUBANKS MD Mar 16, 2017 13:25
--- NOTE | 2017-03-22 19:21 | DSES ---
DATE OF ADMISSION: 03/13/2017 DATE OF DISCHARGE: 03/16/2017 ATTENDING PHYSICIAN: Dr. Arrington. ADMITTING DIAGNOSIS: Left knee degenerative arthritis. OTHER DIAGNOSES: Diabetes, seasonal allergies, obesity, history of cancer. DISCHARGE DIAGNOSIS: Left knee degenerative arthritis status-post left total knee arthroplasty. HISTORY OF PRESENT ILLNESS: Patient is a 62-year-old female with continuing left knee pain and stiffness. She failed to improve with conservative measures so she consented for an elective left total knee arthroplasty with Dr. Arrington. OPERATION PERFORMED: Left total knee arthroplasty. HOSPITAL COURSE: The patient underwent a left total knee arthroplasty under spinal anesthesia which was uneventful. She was up with physical therapy per their protocol, weightbearing as tolerated on the left lower extremity. Her hospital course was without complication and she was stable on the day of discharge. She was discharged on oral pain medications and will resume her preoperative medications and diet. She will take her Coumadin and use her thromboembolic deterrent stockings for 30 days postoperatively to prevent deep venous thrombosis. She will followup in our office in approximately 12-14 days for a wound check and staple removal. She is encouraged to contact our office sooner if there is any increased pain, drainage, bleeding, redness, numbness or tingling in her leg, fever greater than 101 degrees or any other concerns. My preceptor for this patient encounter was Dr. Arrington. He was physically present in the building during the encounter and was fully available. As needed, all aspects of the patient interview, examination, medical decision making process, and medical care plan development were reviewed and approved by the preceptor. The preceptor is aware and concurs with the plan as stated in the body of this note and will attest to such by his/her cosignature. TRINH
== END 2017-03-16 16:30 | disposition home health service (06) | DRG 302 ==
LOC: M OR 08:10 → M MS5PR 14:30
PROVIDERS: ADMIT Orthopaedic Surgery; ATTEND Orthopaedic Surgery
PROC: 0SRD0J9 Replacement of Left Knee Joint with Synthetic Substitute, Cemented, Open Approach (ICD-10-PCS; principal; 2017-03-13 10:30)
DX: M17.12 Unilateral primary osteoarthritis, left knee (principal); Z68.41 Body mass index [BMI] 40.0-44.9, adult; I10 Essential (primary) hypertension; E66.9 Obesity, unspecified; Z79.899 Other long term (current) drug therapy; E11.9 Type 2 diabetes mellitus without complications; G47.33 Obstructive sleep apnea (adult) (pediatric); E78.5 Hyperlipidemia, unspecified; Z85.89 Personal history of malignant neoplasm of other organs and systems; K42.9 Umbilical hernia without obstruction or gangrene

== ENCOUNTER → 2017-03-29 | Outpatient (REF) | payer BC ==
[~2017-03-29] MED LIST changes: +COUM2.5T11 PO; +MORP15TASA PO; +PERC5TAB6 PO
[2017-03-29 17:06] LABS: INR 1.94
== END ==
LOC: M LABDRAWC 16:49
PROVIDERS: ATTEND Orthopaedic Surgery
DX: Z51.81 Encounter for therapeutic drug level monitoring (principal); Z79.01 Long term (current) use of anticoagulants

== ENCOUNTER → 2017-04-02 | Outpatient (REF) | payer BC ==
[2017-04-02 12:10] LABS: INR 1.95
== END ==
LOC: M LABDRAWC 11:34
PROVIDERS: ATTEND Orthopaedic Surgery
DX: Z51.81 Encounter for therapeutic drug level monitoring (principal); Z79.01 Long term (current) use of anticoagulants

== ENCOUNTER → 2017-04-05 | Outpatient (REF) | payer BC ==
[~2017-04-05] MED LIST changes: -COUM2.5T11 PO; +COUM2.5T17 PO; -METF1000 PO; +METF10004 PO; +PERC5TAB12 PO; -PERC5TAB6 PO; -VITA100037 PO; +VITA100067 PO
[2017-04-05 12:05] LABS: INR 1.66
== END ==
LOC: M LABDRAWC 11:35
PROVIDERS: ATTEND Orthopaedic Surgery
DX: Z51.81 Encounter for therapeutic drug level monitoring (principal); Z79.01 Long term (current) use of anticoagulants

== ENCOUNTER → 2017-04-09 | Outpatient (REF) | payer BC ==
[2017-04-09 11:49] LABS: INR 1.63
== END ==
LOC: M LABDRAWC 11:15
PROVIDERS: ATTEND Orthopaedic Surgery
DX: Z51.81 Encounter for therapeutic drug level monitoring (principal); Z79.01 Long term (current) use of anticoagulants

== ENCOUNTER → 2017-07-11 | Outpatient (CLI) | payer BC ==
--- NOTE | 2017-07-13 09:45 | DEXA ---
AP SPINE L1 - L4 1.220 0.2 1.7 LT FEMUR TOTAL 0.989 -0.2 0.9 RT FEMUR TOTAL 0.996 -0.1 1.0 TOTAL BODY TOTAL OTHER % COMMENTS: Normal bone densitometry of the spine. Normal bone densitometry of the left hip. There is low bone density of the right hip. FOLLOW-UP: Recommendation for the next bone density exam: 2 years. TRINH
--- NOTE | 2017-07-18 09:04 | REPMRS ---
Patient History The patient states she had a clinical breast exam in 05/24 Patient is postmenopausal, has history of endometrial cancer at age 54, had previous chemotherapy at age 54, and is nulliparous. Family history of prostate cancer in father at age 50 or over. Digital Woman Screen Mammo: July 11, 2017 - Exam #: [id number] Bilateral CC and MLO view(s) were taken. Technologist: Savannah Chapa, Technologist Prior study comparison: 2012, diagnostic bilateral mammo, performed at [facility]. 2011, digital bilateral screening mammo, performed at [facility]. January 03, 2011, digital bilateral screening mammo, performed at [facility]. FINDINGS: The breast tissue is almost entirely fat. There are benign-appearing secretory microcalcifications in the left breast. There has been no change in the appearance of the mammogram from the prior studies. There is no interval development of dominant mass, architectural distortion, or clustered microcalcification typical of malignancy. ASSESSMENT: BI-RADS/ACR category 1 mammogram. Negative. Recommendation Routine screening mammogram of both breasts in 1 year (for women over age 40). This mammogram was interpreted with the aid of an FDA-approved computer-aided dectection system. Electronically Signed By: Kenan Johnson MD 07/18/17 0931
== END ==
LOC: M WHC 14:14
PROVIDERS: ATTEND Physician Assistant
DX: Z12.31 Encounter for screening mammogram for malignant neoplasm of breast (principal); Z78.0 Asymptomatic menopausal state
CPT/HCPCS: 77080; G0202

== ENCOUNTER → 2017-07-11 | Outpatient (REF) | payer BC | LOC: M SFHCWAGY 14:43 | PROVIDERS: ATTEND Nurse Practitioner Family | DX: Z12.72 Encounter for screening for malignant neoplasm of vagina (principal); Z12.4 Encounter for screening for malignant neoplasm of cervix; Z12.31 Encounter for screening mammogram for malignant neoplasm of breast ==

== ENCOUNTER → 2017-07-25 | Outpatient (REF) | payer BC ==
[2017-07-25 18:40] LABS: BASO % 0.8 % (0.0-1.0); EOS # 0.2 10^3/uL (0.0-0.50); EOS % 3.3 % (0.0-3.0); IMMATURE GRANULOCYTE % 0.4 % (0-0); LYMPH % 18.5 % (24.0-44.0); MEAN CORPUSCULAR HEMOGLOBIN 26.7 pg (27.0-33.0); MEAN CORPUSCULAR HGB CONC 32.1 g/dl (32.0-36.5); MEAN CORPUSCULAR VOLUME 83.3 fl (80.0-96.0); MONO # 0.4 10^3/uL (0.0-0.8); MONO % 7.3 % (0.0-5.0); NEUTROPHILS # 3.6 10^3/uL (1.8-7.7); NEUTROPHILS % 69.7 % (36.0-66.0); PLATELET COUNT, AUTOMATED 233 10^3/uL (150-450); RED CELL DISTRIBUTION WIDTH 15.2 % (11.5-14.5); WHITE BLOOD COUNT 5.2 10^3/uL (4.0-10.0)
[2017-07-25 19:14] LABS: ALBUMIN 3.8 GM/DL (3.2-5.2); ALBUMIN/GLOBULIN RATIO 1.09 (1.00-1.93); ALKALINE PHOSPHATASE 100 U/L (45-117); ALT/SGPT 22 U/L (12-78); ANION GAP 8 MEQ/L (8-16); AST/SGOT 18 U/L (15-37); BILIRUBIN,TOTAL 0.7 MG/DL (0.2-1.0); BLOOD UREA NITROGEN 20 MG/DL (7-18); CALCIUM LEVEL 9.4 MG/DL (8.8-10.2); CARBON DIOXIDE LEVEL 29 MEQ/L (21-32); CHLORIDE LEVEL 102 MEQ/L (98-107); CHOLESTEROL LEVEL 203 MG/DL (<200); CREATININE FOR GFR 0.81 MG/DL (0.55-1.02); FREE T4 1.16 NG/DL (0.76-1.46); GLOMERULAR FILTRATION RATE > 60.0 (>45); GLUCOSE, FASTING 104 MG/DL (80-110); POTASSIUM SERUM 4.2 MEQ/L (3.5-5.1); SODIUM LEVEL 139 MEQ/L (136-145); TOTAL PROTEIN 7.3 GM/DL (6.4-8.2); TRIGLYCERIDES LEVEL 144 MG/DL (<150)
== END ==
LOC: M SFHCCAPE 07:44
PROVIDERS: ATTEND Physician Assistant
DX: E78.5 Hyperlipidemia, unspecified (principal); E11.9 Type 2 diabetes mellitus without complications; I10 Essential (primary) hypertension

== ENCOUNTER → 2018-01-21 | Outpatient (REF) | payer BC ==
[2018-01-21 17:57] LABS: BASO % 0.4 % (0.0-1.0); EOS # 0.1 10^3/uL (0.0-0.50); EOS % 2.5 % (0.0-3.0); HEMATOCRIT 37.5 % (36.0-47.0); HEMOGLOBIN 11.5 g/dl (12.0-15.5); IMMATURE GRANULOCYTE % 0.2 % (0-3.0); LYMPH # 0.9 10^3/uL (1.5-4.5); LYMPH % 18.7 % (24.0-44.0); MEAN CORPUSCULAR HEMOGLOBIN 24.7 pg (27.0-33.0); MEAN CORPUSCULAR HGB CONC 30.7 g/dl (32.0-36.5); MEAN CORPUSCULAR VOLUME 80.6 fl (80.0-96.0); MONO # 0.4 10^3/uL (0.0-0.8); MONO % 8.6 % (0.0-5.0); NEUTROPHILS # 3.3 10^3/uL (1.8-7.7); NEUTROPHILS % 69.6 % (36.0-66.0); PLATELET COUNT, AUTOMATED 242 10^3/uL (150-450); RED BLOOD COUNT 4.65 10^6/uL (4.00-5.40); RED CELL DISTRIBUTION WIDTH 15.3 % (11.5-14.5); WHITE BLOOD COUNT 4.8 10^3/uL (4.0-10.0)
[2018-01-21 18:31] LABS: ALBUMIN 3.8 GM/DL (3.2-5.2); ALBUMIN/GLOBULIN RATIO 1.09 (1.00-1.93); ALKALINE PHOSPHATASE 93 U/L (45-117); ALT/SGPT 25 U/L (12-78); ANION GAP 7 MEQ/L (8-16); AST/SGOT 20 U/L (7-37); BILIRUBIN,TOTAL 0.3 MG/DL (0.2-1.0); BLOOD UREA NITROGEN 21 MG/DL (7-18); CALCIUM LEVEL 9.1 MG/DL (8.8-10.2); CARBON DIOXIDE LEVEL 26 MEQ/L (21-32); CHLORIDE LEVEL 109 MEQ/L (98-107); CHOLESTEROL LEVEL 190 MG/DL (<200); CHOLESTEROL RISK RATIO 3.454 (<5); CREATININE FOR GFR 0.77 MG/DL (0.55-1.30); FREE T4 1.13 NG/DL (0.76-1.46); GLOMERULAR FILTRATION RATE > 60.0 (>45); GLUCOSE, FASTING 100 MG/DL (70-100); HDL CHOLESTEROL 55 MG/DL (>40); LDL CHOLESTEROL 113.8 MG/DL (<100); NON-HDL-C 135 MG/DL; POTASSIUM SERUM 4.5 MEQ/L (3.5-5.1); SODIUM LEVEL 142 MEQ/L (136-145); TOTAL PROTEIN 7.3 GM/DL (6.4-8.2); TRIGLYCERIDES LEVEL 106 MG/DL (<150)
[2018-01-21 18:53] LABS: MALB URINE SIEMENS 12.4 MG/L; MAU/CREAT RATIO 11.5 MCG/MG (0.0-30.0)
[2018-01-21 19:17] LABS: ESTIMATED AVERAGE GLUCOSE 137 MG/DL (60-110); HEMOGLOBIN A1c 6.4 %
== END ==
LOC: M SFHCCAPE 10:46
DX: E11.9 Type 2 diabetes mellitus without complications (principal); E78.5 Hyperlipidemia, unspecified
CPT/HCPCS: 84443

== ENCOUNTER → 2018-07-30 | Outpatient (REF) | payer BC ==
[2018-07-30 17:42] LABS: BASO % 0.5 % (0.0-1.0); EOS # 0.2 10^3/uL (0.0-0.50); EOS % 2.8 % (0.0-3.0); HEMATOCRIT 33.8 % (36.0-47.0); HEMOGLOBIN 10.2 g/dl (12.0-15.5); IMMATURE GRANULOCYTE % 0.5 % (0-3.0); LYMPH % 15.3 % (24.0-44.0); MEAN CORPUSCULAR HEMOGLOBIN 24.5 pg (27.0-33.0); MEAN CORPUSCULAR HGB CONC 30.2 g/dl (32.0-36.5); MEAN CORPUSCULAR VOLUME 81.3 fl (80.0-96.0); MONO # 0.5 10^3/uL (0.0-0.8); NEUTROPHILS # 4.8 10^3/uL (1.8-7.7); NEUTROPHILS % 73.9 % (36.0-66.0); PLATELET COUNT, AUTOMATED 251 10^3/uL (150-450); RED BLOOD COUNT 4.16 10^6/uL (4.00-5.40); RED CELL DISTRIBUTION WIDTH 16.2 % (11.5-14.5); WHITE BLOOD COUNT 6.5 10^3/uL (4.0-10.0)
[2018-07-30 21:54] LABS: ALBUMIN 3.5 GM/DL (3.2-5.2); ALBUMIN/GLOBULIN RATIO 1.25 (1.00-1.93); ALKALINE PHOSPHATASE 93 U/L (45-117); ALT/SGPT 24 U/L (12-78); ANION GAP 7 MEQ/L (8-16); AST/SGOT 16 U/L (7-37); BILIRUBIN,TOTAL 0.3 MG/DL (0.2-1.0); BLOOD UREA NITROGEN 17 MG/DL (7-18); CALCIUM LEVEL 8.9 MG/DL (8.8-10.2); CARBON DIOXIDE LEVEL 28 MEQ/L (21-32); CHLORIDE LEVEL 104 MEQ/L (98-107); CHOLESTEROL LEVEL 195 MG/DL (<200); CHOLESTEROL RISK RATIO 4.062 (<5); CREATININE FOR GFR 0.77 MG/DL (0.55-1.30); GLOMERULAR FILTRATION RATE > 60.0 (>45); GLUCOSE, FASTING 144 MG/DL (70-100); HDL CHOLESTEROL 48 MG/DL (>40); LDL CHOLESTEROL 118 MG/DL (<100); NON-HDL-C 147 MG/DL; POTASSIUM SERUM 4.4 MEQ/L (3.5-5.1); SODIUM LEVEL 139 MEQ/L (136-145); TOTAL PROTEIN 6.3 GM/DL (6.4-8.2); TRIGLYCERIDES LEVEL 145 MG/DL (<150)
[2018-07-30 22:42] LABS: ESTIMATED AVERAGE GLUCOSE 131 MG/DL (60-110); HEMOGLOBIN A1c 6.2 %
[2018-07-31 10:19] LABS: HEPATITIS C VIRUS ABY INDEX < 0.0 INDEX (<0.8)
== END ==
LOC: M SFHCCAPE 07:01
DX: E11.9 Type 2 diabetes mellitus without complications (principal); Z11.59 Encounter for screening for other viral diseases; E78.5 Hyperlipidemia, unspecified
CPT/HCPCS: 80053

== ENCOUNTER → 2018-08-07 | Outpatient (REF) | payer BC ==
[2018-08-07 17:23] LABS: RETIC HEMOGLOBIN EQUIVALENT 24.9 pg (24-36); RETICULOCYTE # 69.1 10^9/L (17-77); RETICULOCYTE % 1.6 % (0.5-1.5)
[2018-08-07 17:25] LABS: LDH LACTATE DEHYDROGENASE 201 U/L (84-246)
[2018-08-07 17:25] LABS: FERRITIN 10 NG/ML (8-252); IRON (FE) 29 UG/DL (50-170); PERCENT SATURATION 6.6 % (13.2-45.0); TOTAL IRON BINDING CAPACITY 439 UG/DL (250-450)
[2018-08-07 17:29] LABS: FOLATE 15.2 NG/ML
[2018-08-09 08:14] LABS: HAPTOGLOBIN 165 mg/dL (34-200)
== END ==
LOC: M SFHCCAPE 09:27
DX: D64.9 Anemia, unspecified (principal)
CPT/HCPCS: 82746

== ENCOUNTER → 2018-12-27 | Outpatient (REF) | payer BC ==
[~2018-12-27] MED LIST changes: +ASPI81TA85 PO; +FERR325T3 PO; +MOVE1TAB PO; +PANT40TA3 PO; +SODI5OPD OD; +SUPECAP24 PO; +VITA2000 PO
[2018-12-27 18:39] LABS: FERRITIN 24 NG/ML (8-252)
[2018-12-27 18:40] LABS: BASO % 0.6 % (0.0-1.0); EOS # 0.1 10^3/uL (0.0-0.50); EOS % 2.8 % (0.0-3.0); HEMATOCRIT 39.1 % (36.0-47.0); HEMOGLOBIN 12.1 g/dl (12.0-15.5); LYMPH % 20.3 % (24.0-44.0); MEAN CORPUSCULAR HEMOGLOBIN 25.6 pg (27.0-33.0); MEAN CORPUSCULAR HGB CONC 30.9 g/dl (32.0-36.5); MEAN CORPUSCULAR VOLUME 82.8 fl (80.0-96.0); MONO # 0.4 10^3/uL (0.0-0.8); MONO % 7.6 % (0.0-5.0); NEUTROPHILS # 3.4 10^3/uL (1.8-7.7); NEUTROPHILS % 68.3 % (36.0-66.0); PLATELET COUNT, AUTOMATED 239 10^3/uL (150-450); RED BLOOD COUNT 4.72 10^6/uL (4.00-5.40)
[2018-12-27 18:48] LABS: VITAMIN B12 LEVEL 277 PG/ML (247-911)
== END ==
LOC: M LABDRAWC 16:28
PROVIDERS: ATTEND Internal Medicine Hematology & Oncology
DX: D64.9 Anemia, unspecified (principal)

== ENCOUNTER → 2019-07-02 | Outpatient (REF) | payer MEDICARE, BC ==
[~2019-07-02] MED LIST changes: +B-1225002 SL; +BIOT10009 PO; -CLAR1CHW PO; +CLAR1CHW2 PO; +OCUV1CAP4 PO; +VITA100024 PO
[2019-07-02 17:32] LABS: ALBUMIN 3.8 GM/DL (3.2-5.2); ALT/SGPT 26 U/L (12-78); BILIRUBIN,TOTAL 0.5 MG/DL (0.2-1.0); BLOOD UREA NITROGEN 26 MG/DL (7-18); CALCIUM LEVEL 10.3 MG/DL (8.8-10.2); CARBON DIOXIDE LEVEL 26 MEQ/L (21-32); CHLORIDE LEVEL 104 MEQ/L (98-107); CHOLESTEROL LEVEL 182 MG/DL (<200); CHOLESTEROL RISK RATIO 3.568 (<5); CREATININE FOR GFR 0.85 MG/DL (0.55-1.30); GLOMERULAR FILTRATION RATE > 60.0 (>45); GLUCOSE, FASTING 95 MG/DL (70-100); HDL CHOLESTEROL 51 MG/DL (>40); LDL CHOLESTEROL 105 MG/DL (<100); NON-HDL-C 131 MG/DL; POTASSIUM SERUM 4.3 MEQ/L (3.5-5.1); SODIUM LEVEL 140 MEQ/L (136-145); TRIGLYCERIDES LEVEL 130 MG/DL (<150)
[2019-07-02 17:48] LABS: BASO % 0.5 % (0.0-1.0); EOS # 0.1 10^3/uL (0.0-0.5); EOS % 1.8 % (0.0-3.0); HEMATOCRIT 45.1 % (36.0-47.0); HEMOGLOBIN 14.6 g/dl (12.0-15.5); LYMPH % 18.6 % (24.0-44.0); MEAN CORPUSCULAR HEMOGLOBIN 28.9 pg (27.0-33.0); MEAN CORPUSCULAR HGB CONC 32.4 g/dl (32.0-36.5); MEAN CORPUSCULAR VOLUME 89.3 fl (80.0-96.0); MONO # 0.5 10^3/uL (0.0-0.8); MONO % 8.6 % (0.0-5.0); NEUTROPHILS # 3.8 10^3/uL (1.5-8.5); NEUTROPHILS % 70.3 % (36.0-66.0); PLATELET COUNT, AUTOMATED 207 10^3/uL (150-450); RED BLOOD COUNT 5.05 10^6/uL (4.00-5.40); WHITE BLOOD COUNT 5.5 10^3/uL (4.0-10.0)
[2019-07-02 18:02] LABS: HEMOGLOBIN A1c 5.6 %
== END ==
LOC: M SFHCCAPE 07:15
PROVIDERS: ATTEND Physician Assistant
DX: E11.9 Type 2 diabetes mellitus without complications (principal)

== ENCOUNTER → 2019-10-10 | Outpatient (REF) | payer MEDICARE, BC | LOC: M LAB REF 18:34 | PROVIDERS: ATTEND Dermatology | DX: L82.1 Other seborrheic keratosis (principal) | CPT/HCPCS: 11102; 88305; G0463 ==

== ENCOUNTER 2020-03-08 01:06 | Emergency (ER) | payer MEDICARE ==
[~2020-03-08] VITALS: Ht 157.5 cm; Wt 102.3 kg
[2020-03-08] MEDS ORDERED: KETOROLAC 60MG 2ML VIAL IM ONE (01:45)
[2020-03-08 03:00] VITALS: BP 137/73
--- NOTE | 2020-03-08 09:38 | REP ---
REASON FOR EXAM: Back pain. CHEST PORTABLE: FINDINGS: The technique utilized in obtaining the radiograph has magnified the cardiac silhouette and accentuated the interstitial markings. The superior mediastinal structures are midline. The cardiac silhouette is unremarkable in size, shape, and position. The diaphragmatic surfaces of the lungs are regular, and the costophrenic angles are clear. The pulmonary flores are clear. The imaged osseous structures are intact. IMPRESSION: There is no acute cardiopulmonary disease. A left shoulder prosthesis is noted. Electronically Signed by Josias Finnegan DO 03/08/2020 10:10 A
--- NOTE | 2020-03-08 20:26 | ECGEPIP ---
[facility] - ED Test Date: 2020-03-08 Pat Name: CHEYENNE SALAS Department: Room: - Gender: Female Social Service Agency Director: : 1955 Requested By: NOREEN YIP Order Number: [id number] Reading MD: Raimundo Rodgers Measurements Intervals [place] Rate: 76 P: 21 MT: 162 QRS: -15 QRSD: 89 T: 15 QT: 372 QTc: 421 Interpretive Statements SINUS RHYTHM LOW QRS VOLTAGE IN PRECORDIAL LEADS PATTERN CONSISTENT WITH PULMONARY DISEASE- new from tracing done 02-27-17 Electronically Signed on 03-08-2020 20:26:39 EDT by Raimundo Rodgers
== END 2020-03-08 03:27 | disposition home or self-care (01) ==
LOC: EDBD 01:06 → M ED 01:06
DX: S39.012A Strain of muscle, fascia and tendon of lower back, initial encounter (principal); X50.1XXA Overexertion from prolonged static or awkward postures, initial encounter; Y92.9 Unspecified place or not applicable; E11.9 Type 2 diabetes mellitus without complications; E66.9 Obesity, unspecified; M19.90 Unspecified osteoarthritis, unspecified site; F41.9 Anxiety disorder, unspecified; F32.9 Major depressive disorder, single episode, unspecified; Z79.84 Long term (current) use of oral hypoglycemic drugs; Z79.899 Other long term (current) drug therapy
CPT/HCPCS: 71045; 93005; 99284; G0463; J1885

== ENCOUNTER → 2020-03-24 | Outpatient (REF) | payer MEDICARE ==
[~2020-03-24] MED LIST changes: -ASPI81TA85 PO; +ASPI81TA86 PO; +PANT40TA29 PO; -PANT40TA3 PO
== END ==
LOC: M LAB REF 17:49
PROVIDERS: ATTEND Dermatology
DX: D23.62 Other benign neoplasm of skin of left upper limb, including shoulder (principal)

== ENCOUNTER → 2020-03-29 | Outpatient (REF) | payer MEDICARE ==
[~2020-03-29] MED LIST changes: +ASPI81TA85 PO; -ASPI81TA86 PO; -PANT40TA29 PO; +PANT40TA3 PO
[2020-03-29 11:45] LABS: BASO % 0.8 % (0.0-1.0); EOS # 0.1 10^3/uL (0.0-0.5); EOS % 2.5 % (0.0-3.0); HEMATOCRIT 41.9 % (36.0-47.0); HEMOGLOBIN 13.1 g/dl (12.0-15.5); LYMPH % 18.8 % (24.0-44.0); MEAN CORPUSCULAR HEMOGLOBIN 28.6 pg (27.0-33.0); MEAN CORPUSCULAR HGB CONC 31.3 g/dl (32.0-36.5); MEAN CORPUSCULAR VOLUME 91.5 fl (80.0-96.0); MONO # 0.5 10^3/uL (0.0-0.8); MONO % 8.6 % (0.0-5.0); NEUTROPHILS # 3.6 10^3/uL (1.5-8.5); NEUTROPHILS % 68.9 % (36.0-66.0); PLATELET COUNT, AUTOMATED 203 10^3/uL (150-450); RED BLOOD COUNT 4.58 10^6/uL (4.00-5.40); WHITE BLOOD COUNT 5.3 10^3/uL (4.0-10.0)
[2020-03-29 12:06] LABS: ALBUMIN 3.6 GM/DL (3.2-5.2); ALT/SGPT 21 U/L (12-78); BILIRUBIN,TOTAL 0.6 MG/DL (0.2-1.0); BLOOD UREA NITROGEN 18 MG/DL (7-18); CALCIUM LEVEL 9.5 MG/DL (8.8-10.2); CARBON DIOXIDE LEVEL 28 MEQ/L (21-32); CHLORIDE LEVEL 108 MEQ/L (98-107); CHOLESTEROL LEVEL 198 MG/DL (<200); CREATININE FOR GFR 0.79 MG/DL (0.55-1.30); GLOMERULAR FILTRATION RATE > 60.0 (>45); GLUCOSE, FASTING 101 MG/DL (70-100); HDL CHOLESTEROL 50 MG/DL (>40); LDL CHOLESTEROL 122 MG/DL (<100); NON-HDL-C 148 MG/DL; POTASSIUM SERUM 4.4 MEQ/L (3.5-5.1); SODIUM LEVEL 141 MEQ/L (136-145); THYROID STIMULATING HORMONE 0.862 uIU/ML (0.358-3.740); TOTAL PROTEIN 6.9 GM/DL (6.4-8.2); TRIGLYCERIDES LEVEL 130 MG/DL (<150)
[2020-03-29 12:13] LABS: HEMOGLOBIN A1c 6.2 %
== END ==
LOC: M SFHCCLAY 08:21
PROVIDERS: ATTEND Physician Assistant
DX: D64.9 Anemia, unspecified (principal); I10 Essential (primary) hypertension; E11.9 Type 2 diabetes mellitus without complications

== ENCOUNTER → 2020-04-06 | Outpatient (REF) | payer MEDICARE | LOC: M SFHCCLAY 09:54 | PROVIDERS: ATTEND Physician Assistant | DX: R35.0 Frequency of micturition (principal) ==

== ENCOUNTER → 2020-05-26 | Outpatient (CLI) | payer MEDICARE ==
[~2020-05-26] MED LIST changes: -ASPI81TA85 PO; +ASPI81TA86 PO; +PANT40TA29 PO; -PANT40TA3 PO
--- NOTE | 2020-06-21 07:10 | SLEEPCENT ---
DATE: 05/26/2020 ORDERED BY: Katelin Saxena INDICATIONS: Nocturnal polysomnography was performed for evaluation of sleep physiology in this patient with a prior history of obstructive sleep apnea, who has accomplished significant weight loss but has persistent symptoms. There was 8 hours and 21 minutes of data reviewed. There was 242.5 minutes of sleep identified. Sleep latency was prolonged at 93.5 minutes. REM sleep was not achieved. Overall sleep architecture shows fragmentation with poor sleep progression. Sleep efficiency was poor at 49.5%. The patient's electrocardiogram shows a sinus rhythm with an average heart rate of 82 beats per minute. EEG showed reasonably normal waveforms for wake and sleep. There were 170 respiratory events identified of 10 seconds in duration or greater, for an apnea-hypopnea index of 42.1. The events were obstructive, not exclusive to sleep stage nor body posture. Arousals from respiratory events occurred 8.9 times per hour, and oxygen desaturations were seen into the 80s. There was some activity noted also in the limb leads, but limb movement arousal index was low at 2.2. IMPRESSION: Obstructive sleep apnea syndrome (G47.33). Apnea-hypopnea index 42.1. RECOMMENDATION: The patient should be encouraged to return to the sleep disorder center at earliest convenience for pressure therapy. In the interim, alcohol and sedative avoidance should be practiced and caution exercised during the operation of motor vehicles. MTDD
== END ==
LOC: M SLEEP 20:00
PROVIDERS: ATTEND Nurse Practitioner Adult Health
DX: G47.33 Obstructive sleep apnea (adult) (pediatric) (principal)

== ENCOUNTER → 2020-07-01 | Outpatient (CLI) | payer MEDICARE ==
--- NOTE | 2020-07-06 07:09 | SLEEPCENT ---
DATE: 07/01/2020 ORDERED BY: Katelin Saxena Nocturnal polysomnography was performed for the titration of pressure therapy in this patient with severe obstructive sleep apnea syndrome, apnea-hypopnea index 41.1. For testing, patient was fit with a [employer] Simplus full-face mask of small size. There was 4 cm of water pressure applied to the circuit, and the lights were extinguished. There was 8 hours and 20 minutes of data reviewed. There was 304 minutes of sleep identified. Sleep latency was prolonged at 94.5 minutes. REM latency was prolonged at 318 minutes. Sleep architecture was initially showing poor progression with periods of wake. There was one REM cycle late in the study. Overall sleep efficiency was 62.5%. The electrocardiogram showed a sinus rhythm with average heart rate of 80 beats per minute. EEG showed normal waveforms for wake and sleep. Respiratory events were fully palliated with CPAP at a pressure of +8. There was some limb activity early in the study. Limb movement arousal index on this occasion was 5.1. IMPRESSION: Obstructive sleep apnea syndrome (G47.33). RECOMMENDATION: Nightly use of pressure therapy, 9 cm of water. MTDD
== END ==
LOC: M SLEEP 20:00
PROVIDERS: ATTEND Nurse Practitioner Adult Health
DX: G47.33 Obstructive sleep apnea (adult) (pediatric) (principal)

== ENCOUNTER → 2021-03-23 | Outpatient (CLI) | payer MEDICARE ==
[~2021-03-23] MED LIST changes: +BIOT1CAP2 PO; +CLAR1TAB13 PO; +CYAN500T14 PO; +D31000TA2 PO; +IRON27TA2 PO; +LISI10TA22 PO; +prevagen
== END ==
LOC: M LABSMTC 11:35
PROVIDERS: ATTEND Anesthesiology
DX: Z20.828 Contact with and (suspected) exposure to other viral communicable diseases (principal); Z11.59 Encounter for screening for other viral diseases

== ENCOUNTER 2021-03-28 08:49 | Day surgery (SDC) | payer MEDICARE ==
[~2021-03-28] VITALS: Ht 154.9 cm; Wt 106.6 kg
[~2021-03-28 08:49] MED LIST changes: +ACETYLCHOLINE OPHTH SOLN 1% 2ML (MIOCHOL-E) As Ordered ONE; +CEFUROXIME 1MG/0.1ML INTRACAMERAL INJ As Ordered ONE; +DUOVISC (0.50ML VISCOAT/0.55ML PROVISC) OPHTH KIT As Ordered ONE; +OFLOXACIN 0.3 % (OCUFLOX) OPTH SOL 5ML OS ONE; +PHENYLEPHRINE 2.5% OPHTH SOL 2ML OS ONE; +POVIDONE-IODINE 5% OPHTH PREP SOL 30ML As Ordered ONE; +PROPARACAINE 0.5% OPHTH SOL 15ML OS ONE; +TOBRADEX OPHTH OINT 3.5 GM As Ordered ONE; +TROPICAMIDE 1% OPHTH SOLN 2ML OS ONE; +TRYPAN BLUE 0.06 % 2.25 ML OPHTH SYR (VISIONBLUE) As Ordered ONE
[2021-03-28] MEDS ORDERED: fentaNYL 100 MCG/2 ML INJECTION (J3010) As Ordered ONE (09:34)
[2021-03-28] MEDS ORDERED: MIDAZOLAM INJ 2MG/2ML VIAL (J2250 PER 1MG) As Ordered ONE (09:34)
[2021-03-28] MEDS ORDERED: BALANCED SALT IRRIGATION SOLUTION 500ML BAG (FOR OR EYE MACHINE) As Ordered ONE (11:21)
[2021-03-28 12:06] VITALS: BP 136/72
--- NOTE | 2021-03-30 08:39 | RO ---
OPERATIVE NOTE DATE OF OPERATION: 03/28/2021 PREOPERATIVE DIAGNOSIS: 1. 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 3. Corneal scar. 4. Corneal edema of the left eye. POSTOPERATIVE DIAGNOSIS: 1. 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 3. Corneal scar. 4. Corneal edema of the left eye. PROCEDURE: 1. Descemet's membrane endothelial keratoplasty of the left eye (7.5 mm donor graft). ANESTHESIA: Local with MAC. SPECIMENS: 1. Patient's cornea. 2. Donor corneal scleral rim. COMPLICATIONS: None. PROCEDURE: The patient was seen and identified in the preoperative area. The consents were reviewed. The patient received antibiotics, anesthetics and dilating drops to the surgical eye and the patient was taken to the operating room. The eye was prepped and draped in sterile fashion. Tegaderm was used to isolate the upper and lower eyelids and a wire lid speculum was placed. At that time, a 0.6 mm superior and inferior paracentesis incision was made. Intraoperative preservative free Lidocaine was injected into the anterior chamber. At that time, a cohesive viscoelastic was injected into the anterior chamber. An 8 mm metal trephine was used to evaristo the surface of the corneal epithelium. This area was then marked with a marking pen. At that time using a reverse Sinskey hook, the 8 mm inked area was removed, scored 360 degrees and the patient's Descemet membrane was detached. A temporal 2.4 mm corneal incision was made and at that time using a reverse stripping instrument, the patient's Descemet's membrane was detached and removed from the eye and then sent for pathology. The view of the cornea was poor given preexisting scarring and corneal edema so decision was made to perform a small area of superficial keratectomy in the area of the bullous edema to improve the surgical view. Irrigation aspiration was used to remove all viscoelastic from the anterior chamber. Miochol was placed showing a mildly small pupil. The inferior peripheral iridotomy was inspected and found to be patent. Attention was then turned to the donor cornea. The donor cornea was gently swirled in the cornea bank vial and then poured into a Jovani dish with BSS. This was then transferred to the back end of a Geuder glass graft cannula using a 3 mL syringe and BSS to an 8 mm punch block. The graft was restained with Trypan blue for two minutes. The graft was then loaded into the back end of a Geuder glass cannula. An additional 3 mL syringe with BSS was attached and the graft was advanced to the distal end of the Geuder glass cannula. At that time, the graft was brought near the patient's eye and the Geuder glass cannula was placed into the 2.4 mm incision. The cannula was beveled up and the graft was gently injected into the anterior chamber and then using bursts of BSS, the graft was rotated 90 degrees from the incision. The Geuder glass cannula was removed, paying careful attention not to allow graft egress from the incision. A gentle two-handed tapping technique was used to unravel the graft showing correct orientation. The S stamp was visible. The graft was centered. Air was placed underneath the graft and 80% air fill. A temporal 10-0 nylon suture was placed and a complete air fill was placed for a moderately elevated IOP for approximately two minutes. At that time, the graft was then reduced to approximately 60% so that the air bubble can clear the inferior peripheral iridotomy. The eye was found to be within normal pressure. The suture knot was buried. ReSure was placed over the inferior and superior paracentesis incisions. A contact lens was placed over the area that the keratectomy was performed and then the patient's drapes, Tegaderm and speculum were removed. The patient was then sent to PACU with instructions to lay flat for approximately one hour and then will be checked prior to discharge.
== END 2021-03-28 13:27 | disposition home or self-care (01) ==
LOC: M SDC 08:49
PROVIDERS: ATTEND Ophthalmology
DX: H18.512 Endothelial corneal dystrophy, left eye (principal); H18.232 Secondary corneal edema, left eye; H18.10 Bullous keratopathy, unspecified eye; I10 Essential (primary) hypertension; E78.5 Hyperlipidemia, unspecified; E11.9 Type 2 diabetes mellitus without complications; K21.9 Gastro-esophageal reflux disease without esophagitis; Z85.42 Personal history of malignant neoplasm of other parts of uterus; F32.9 Major depressive disorder, single episode, unspecified; G47.33 Obstructive sleep apnea (adult) (pediatric); Z92.21 Personal history of antineoplastic chemotherapy; Z92.3 Personal history of irradiation; Z79.899 Other long term (current) drug therapy
CPT/HCPCS: 65756; 65757; 87070; 87075; 87102; 87205; 88300; J2250; J3010; V2785